=== PATIENT | male | born 1965 | race Caucasian/White ===

== ENCOUNTER 2017-01-07 20:03 | Emergency (ER) | payer OTHER ==
[~2017-01-07] VITALS: Ht 170.2 cm; Wt 74.5 kg
[2017-01-07 20:06] VITALS: Ht 170.2 cm; Wt 74.5 kg
[2017-01-07] MEDS ORDERED: MECLIZINE 12.5 MG TAB PO STA (21:17)
--- NOTE | 2017-01-07 21:52 | RADRPT ---
PROCEDURE: CT Head without. CLINICAL INDICATION: Vertigo. TECHNIQUE: The study was performed utilizing a multi-slice, multidetector CT scanner. Direct spira l 1 mm axial sections were obtained through the head without the use of intravenous contrast materia l. 1 or more of the following dose reduction techniques were utilized: Automated exposure control, adjustment of the mA and/or kV according to patient's size, iterative reconstruction technique. Co franci and sagittal reformations were obtained. The images were reviewed on a PACS workstation. RADIATION DOSE: CTDIvol: 42.3 mGyDLP: 720.2 mGy-cm COMPARISON: No prior studies are available for comparison. FINDINGS: There is no intracranial hemorrhage, extra-axial fluid collection, mass lesion, midline shift or hyd rocephalus. The ventricles, sulci and cisterns are within normal limits. The white matter is unrem arkable. The mendenhall-white matter differentiation is preserved. The basal cisterns are patent. The m idline structures are intact. The orbits, calvarium and extracranial soft tissues are normal in tomas earance. The visualized paranasal sinuses, mastoid air cells and middle ear cavities are normally ae rated. There is pneumatization of the bilateral petrous apices without evidence of inflammatory mims ges, normal variant. IMPRESSION: 1. No acute intracranial abnormality. No intracranial hemorrhage, extra-axial fluid collection, ma ss lesion or hydrocephalous. RPTAT: HGAS .John Chaparro MD, Date Time Electronically viewed and signed by .John Chaparro MD, MD on 01/07/2017 21:51 .S/
[2017-01-07 22:16] LABS: ADD SCAN DIFF NO
[2017-01-07 22:17] LABS: BASOPHILS % 0.4 % (0.0-2.0); EOSINOPHILS # 0.4 10^3/ul (0.0-0.5); EOSINOPHILS % 4.6 % (0.0-7.0); HEMATOCRIT 44.3 % (42.0-52.0); HEMOGLOBIN 14.7 g/dl (14.0-18.0); LYMPHOCYTES # 2.6 10^3/ul (0.8-2.9); LYMPHOCYTES % 32.7 % (15.0-51.0); MEAN CORPUSCULAR HEMOGLOBIN 30.1 pg (29.0-33.0); MEAN CORPUSCULAR HGB CONC 33.2 g/dl (32.0-37.0); MEAN CORPUSCULAR VOLUME 90.8 fl (82.0-101.0); MEAN PLATELET VOLUME 9.7 fl (7.4-10.4); MONOCYTE # 0.7 10^3/ul (0.3-0.9); MONOCYTES % 8.5 % (0.0-11.0); NEUTROPHIL # 4.2 10^3/ul (1.6-7.5); NEUTROPHILS % 53.5 % (39.0-77.0); PLATELET COUNT 254 10^3/UL (140-415); RED BLOOD COUNT 4.88 10^6/ul (4.70-6.10); RED CELL DISTRIBUTION WIDTH 12.6 % (11.5-14.5); WHITE BLOOD COUNT 7.9 10^3/ul (4.8-10.8)
[2017-01-07 22:32] LABS: ALBUMIN 4.5 g/dl (3.3-4.9)
[2017-01-07 22:33] LABS: POTASSIUM 4.1 mmol/L (3.5-5.1)
[2017-01-07 22:35] LABS: ALBUMIN/GLOBULIN RATIO 1.15; BILIRUBIN,INDIRECT 0.2 mg/dl (0-1.1); BILIRUBIN,TOTAL 0.2 mg/dl (0.2-1.3); CREATININE 0.95 mg/dl (0.61-1.24); TOTAL PROTEIN 8.4 g/dl (6.1-8.1)
[2017-01-07 22:36] LABS: CALCIUM 9.4 mg/dl (8.4-10.2)
--- NOTE | 2017-01-07 22:55 | ERD ---
ER Documentation Chief Complaint Date/Time DATE: 01/07/17 TIME: 22:55 Chief Complaint non traumatic back pain w/ dizziness x 4 weeks HPI This is a 51-year-old male presenting to the emergency department with many complaints, stating that his number one complaint is having low energy for one month. Patient is requesting lab work to be done. Patient states that sometimes he will get this dizziness whenever he moves his head in the past month. He denies any headaches, nausea, vomiting, diarrhea, chest pain, shortness of breath. Patient also admits to having lumbar back pain rating it mild to moderate in severity increased with movement. Patient denies taking any medications for this. ROS All systems reviewed and are negative except as per history of present illness. Medications Home Meds Active Scripts Meclizine Hcl* (Antivert*) 12.5 Mg Tab, 25 MG PO Q6H Y for DIZZINESS, #30 TAB Prov:FLORA KAY PA-C 01/07/17 Allergies Allergies: Coded Allergies: No Known Allergy (Unverified , 01/07/17) PMhx/Soc Hx Miscellaneous Medical Probl: Yes (high cholesterol) Hx Alcohol Use: No Hx Substance Use: No Hx Tobacco Use: No Smoking Status: Never smoker Physical Exam Vitals Vital Signs Date Time Temp Pulse Resp B/P Pulse Ox O2 Delivery O2 Flow Rate FiO2 01/07/17 20:06 98.3 77 20 159/91 99 Physical Exam Const: [] Head: Atraumatic Eyes: Normal Conjunctiva ENT: Normal External Ears, Nose and Mouth. Neck: Full range of motion..~ No meningismus. Resp: Clear to auscultation bilaterally Cardio: Regular rate and rhythm, no murmurs Abd: Soft, non tender, non distended. Normal bowel sounds Skin: No petechiae or rashes Back: No midline or flank tenderness Ext: No cyanosis, or edema Neur: Awake and alert Psych: Normal Mood and Affect Result Diagram: 01/07/17220701/07/172207 Results 24 hrs Laboratory Tests Test 01/07/17 22:08 White Blood Count 7.910^3/ul Red Blood Count 4.8810^6/ul Hemoglobin 14.7g/dl Hematocrit 44.3% Mean Corpuscular Volume 90.8fl Mean Corpuscular Hemoglobin 30.1pg Mean Corpuscular Hemoglobin Concent 33.2g/dl Red Cell Distribution Width 12.6% Platelet Count 27784^3/UL Mean Platelet Volume 9.7fl Neutrophils % 53.5% Lymphocytes % 32.7% Monocytes % 8.5% Eosinophils % 4.6% Basophils % 0.4% Nucleated Red Blood Cells % 0.0/100WBC Neutrophils # 4.210^3/ul Lymphocytes # 2.610^3/ul Monocytes # 0.710^3/ul Eosinophils # 0.410^3/ul Basophils # 0.010^3/ul Nucleated Red Blood Cells # 0.010^3/ul Sodium Level 142mmol/L Potassium Level 4.1mmol/L Chloride Level 100mmol/L Carbon Dioxide Level 28mmol/L Anion Gap 18 Blood Urea Nitrogen 14mg/dl Creatinine 0.95mg/dl Glucose Level 87mg/dl Calcium Level 9.4mg/dl Total Bilirubin 0.2mg/dl Direct Bilirubin 0.00mg/dl Indirect Bilirubin 0.2mg/dl Aspartate Amino Transf (AST/SGOT) 36IU/L Alanine Aminotransferase (ALT/SGPT) 45IU/L Alkaline Phosphatase 81IU/L Total Protein 8.4g/dl Albumin 4.5g/dl Globulin 3.90g/dl Albumin/Globulin Ratio 1.15 Lipase 79U/L Current Medications Medications (Trade) Dose Ordered Sig/Toney Route PRN Reason Start Time Stop Time Status Last Admin Dose Admin Meclizine HCl (Antivert) 25 mg ONCE STAT PO 01/07/17 21:17 01/07/17 21:19 DC 01/07/17 22:05 Procedures/MDM This is a 51-year-old male presenting to the emergency department with many complaints, stating that his number one complaint is having low energy for one month. Patient is requesting lab work to be done. Patient states that sometimes he will get this dizziness whenever he moves his head in the past month. On examination, patient had a normal neurological exam. Patient appears well and stable vital signs. He did not seem to have any symptoms of vertigo in the ED today, differentials include but not limited to include BPV, labyrinthitis, vestibular neuritis, Mnire's disease, acoustic neuroma, otitis media and central causes such as vestibular migraine, brainstem ischemia, and multiple sclerosis. Patient did not have neurological symptoms, headaches, tinnitus or hearing loss. A CT of the head was done and did not show any evidence of mass-effect, intracranial pathology. Lab work was drawn. CBC did not show any evidence of leukocytosis or anemia. CMP did not show any evidence of renal, liver, or electrolyte abnormalities. In the ED antibiotic was given and patient states that he feels a lot better. DISPOSITION: hemodynamically stable for discharge for home. I have discussed the pathology of the condition. Prescriptions have been given. I have discussed to see a primary care physician for follow-up examination and management. Discussed to return to the ER if condition worsens or not improves as expected. Patient expressed that they agreed and understood this plan. Departure Diagnosis: Primary Impression: Vertigo Additional Impressions: Low energy Multiple complaints Condition: Stable Patient Instructions: Vertigo, Unspecified [facility]: [facility] Usted se funes hecho un examen mdico de control que le indica que no est en ronnie condicin que requiera tratamiento urgente en el Departamento de Emergencia. Un estudio ms profundo y el tratamiento de singh condicin pueden esperar sin ningn riesgo hasta que usted sea atendida/o en el consultorio de singh mdico o ronnie cl jodi. Es responsabilidad suya arreglar ronnie veronika para el seguimiento del hal. MANEJO DE CONDICIONES NO URGENTES EN EL FUTURO 1) Si usted tiene un mdico de atencin primaria: Usted debera llamar a singh mdico de atencin primaria antes de venir al departamento de emergencia. Despus de las horas de consultorio, singh doctor o singh asociado/a est disponible por telfono. El mdico o enfermero de salomón en el servicio telefnico puede asesorarle por tiff medio para atender el problema, o hal contrario se puede programar ronnie veronika. 2) Si usted no tiene un mdico de atencin primaria: Llame al mdico o clnica de referencia que aparece abajo raina las horas de consultorio para hacer ronnie veronika para que le vean. CLINICAS: [facility] [phone] [facility] [phone] [facility] [phone] [place] [address] [phone] [place] [address] [phone] [place] [address] [phone] Additional Instructions: Visite a singh ico maana para un EXAMEN.Regrese a estas instalaciones si no se mejora charissa esperbamos o charissa le dijimos. Regrese a estas instalaciones si no se mejora charissa esperbamos o charissa le dijimos. FLORA KAY PA-C January 07, 2017 22:55
[2017-01-07] MEDS ORDERED: MECL12.574 PO (22:56)
[2017-01-07 23:00] VITALS: BP 150/85; PULSE 83; RESP 18
== END 2017-01-07 23:01 | disposition home or self-care (01) ==
LOC: FTE 20:03
DX: R42 Dizziness and giddiness (principal); R53.83 Other fatigue
CPT/HCPCS: 70450; 80053; 83690; 85025; Z7502; Z7610

== ENCOUNTER 2018-02-06 18:26 | Emergency (ER) | END 2018-02-06 21:13 | disposition home or self-care (01) ==

== ENCOUNTER 2018-02-10 14:29 | Emergency (ER) | END 2018-02-10 16:33 | disposition home or self-care (01) ==